=== PATIENT | male | born 1940 | race Caucasian/White ===

== ENCOUNTER 2017-09-28 09:44 | Emergency (ER) | payer MEDICARE, BC ==
--- NOTE | 2017-09-28 09:46 | Emergency Department Record ---
History of Present Illness - General Chief complaint: Extremity Problem Stated complaint: FALL/ARM PAIN Time Seen by Provider: 09/28/17 09:46 Source: Patient, Family (spouse) - History of Present Illness Initial comments: the patient and his spouise state that a week ago today he slipped and fell onto his right side on the ice, injuring his right upper arm/shoulder. Since then he has been unable to lift the arm against gravity due to pain. Yesterday he was using the compressor on his tire when it blew off, straining his shoulder again. He wishes to get his shoulder checked out. He denies other injury, no head, back, hip, or lower extremity injury. - Related Data Home Medications Medication Instructions Recorded Confirmed Last Taken No Home Med [NO HOME MEDS] 09/28/17 09/28/17 Unknown Allergies Allergy/AdvReac Type Severity Reaction Status Date / Time Penicillins Allergy FLU LIKE Verified 09/28/17 09:57 SYMPTOMS Review of Systems Reviewed: No additional complaints except as noted below Constitutional: Reports: As per HPI. Denies: Chills, Fever, Malaise, Night sweats, Weakness, Weight change Eyes: Reports: As per HPI. Denies: Eye discharge, Eye pain, Photophobia, Vision change ENT: Reports: As per HPI. Denies: Congestion, Dental pain, Ear pain, Epistaxis , Hearing loss, Throat pain Respiratory: Reports: As per HPI. Denies: Cough, Dyspnea, Hemoptysis, Stridor, Wheezes Cardiovascular: Reports: As per HPI. Denies: Arrhythmia, Chest pain, Dyspnea on exertion, Edema, Murmurs, Orthopnea, Palpitations, Paroxysmal nocturnal dyspnea, Rheumatic Fever, Syncope Endocrine: Reports: As per HPI. Denies: Fatigue, Heat or cold intolerance, Polydipsia, Polyuria Gastrointestinal: Reports: As per HPI. Denies: Abdominal pain, Constipation, Diarrhea, Hematemesis, Hematochezia, Melena, Nausea, Vomiting Genitourinary: Reports: As per HPI. Denies: Dysuria, Frequency, Hematuria, Incontinence, Retention, Testicular pain, Testicular mass, Urgency Musculoskeletal: Reports: As per HPI. Denies: Arthralgia, Back pain, Gout, Joint swelling, Myalgia, Neck pain Skin: Reports: As per HPI. Denies: Bruising, Change in color, Change in hair/ nails, Lesions, Pruritus, Rash Neurological: Reports: As per HPI. Denies: Abnormal gait, Confusion, Headache, Numbness, Paresthesias, Seizure, Tingling, Tremors, Vertigo, Weakness Psychiatric: Reports: As per HPI. Denies: Anxiety, Auditory hallucinations, Depression, Homicidal thoughts, Suicidal thoughts, Visual hallucinations Hematological/Lymphatic: Reports: As per HPI. Denies: Anemia, Blood Clots, Easy bleeding, Easy bruising, Swollen glands Physical Exam - General General Appearance: Alert, Oriented x3, Cooperative, No acute distress - Head Head exam: Normal inspection - Eye Eye exam: Normal appearance, PERRL Pupils: Normal accommodation - ENT ENT exam: Normal exam, Mucous membranes moist, Normal external ear exam, Normal orophraynx, TM's normal bilaterally Ear exam: Normal external inspection. negative: External canal tenderness Nasal Exam: Normal inspection. negative: Discharge, Sinus tenderness Mouth exam: Normal external inspection, Tongue normal Teeth exam: Normal inspection. negative: Dental caries Throat exam: Normal inspection. negative: Tonsillar erythema, Tonsillar exudate - Neck Neck exam: Normal inspection, Full ROM. negative: Tenderness - Respiratory Respiratory exam: Normal lung sounds bilaterally. negative: Respiratory distress - Cardiovascular Cardiovascular Exam: Regular rate, Normal rhythm, Normal heart sounds - GI/Abdominal GI/Abdominal exam: Soft, Normal bowel sounds. negative: Tenderness - Rectal Rectal exam: Deferred - exam: Deferred - Extremities Extremities exam: Normal inspection, Normal capillary refill, Tenderness (no bony tender of right shoulder on palpation; ROM diminished lifting to flexion and abduction against gravity. Elbow wrist and hand all nontender with FROM and normal strength.) - Back Back exam: Reports: Normal inspection, Full ROM. Denies: Muscle spasm, Rash noted, Tenderness - Neurological Neurological exam: Alert, Normal gait, Oriented X3, Reflexes normal - Psychiatric Psychiatric exam: Normal affect, Normal mood - Skin Skin exam: Dry, Intact, Normal color, Warm Course - Reevaluation(s) Reevaluation #1: The patient declined pain medication. He states he has norco at home from his orthopod Dr. Roberts whom he wishes to follow up with. He will call next week. Disc made to go with patient. 09/28/17 11:01 Medical Decision Making - Management Options MDM Management: Additional Work-up Planned (e.g. ADM/Transfer/OP Study) ( Orthopedic follow up with your Dr. Roberts.) - Data Complexity MDM Data: X-Ray Ordered and/or Reviewed (Right shoulder xray: Neg for acute fracture) Disposition Disposition: Discharge Clinical Impression: Right shoulder injury Qualifiers: Encounter type: initial encounter Qualified Code(s): S49.91XA - Unspecified injury of right shoulder and upper arm, initial encounter Disposition: Home, Self-Care Condition: (1) Good Instructions: Rotator Cuff Injury (ED), Shoulder Sprain (ED) Additional Instructions: Sling right shoulder. ROM exercises 4 times daily to prevent "frozen shoulder." Tylenol or ibuprofen as directed as needed for pain Follow up with Dr. Granger orthopedist for recheck next week. Forms: Patient Portal Access Quality - Quality Measures Quality Measures: N/A - Blood Pressure Screening Does Patient Have Any of the Following: No Blood Pressure Classification: Hypertensive Reading Systolic Measurement: 159 Diastolic Measurement: 90 Screening for High Blood Pressure: < Pre-Hypertensive BP, F/U Documented > [ [id number]] Pre-Hypertensive Follow-up Interventions: Follow-up with rescreen every year.
--- NOTE | 2017-09-28 22:08 | RADIOLOGY REPORT ---
EXAM: SHOULDER, RIGHT HISTORY: PAIN. TECHNIQUE: Three-view right shoulder. COMPARISON: None. ENCOUNTER: Initial. FINDINGS: Negative for an acute fracture or dislocation. Osteopenia. Degenerative changes of the acromioclavicular and glenohumeral joints. Questionable loose body in the subacromial soft tissues measuring 6.1 mm. IMPRESSION: OSTEOPENIA WITH DEGENERATIVE CHANGE. QUESTIONABLE LOOSE BODY FORMATION. JOB NUMBER: [id number] MTDD
== END 2017-09-28 11:13 | disposition home or self-care (01) ==
LOC: ER 09:44
DX: S49.91XA Unspecified injury of right shoulder and upper arm, initial encounter (principal); W00.0XXA Fall on same level due to ice and snow, initial encounter
CPT/HCPCS: 99283